=== PATIENT | female | born 1965 | race Caucasian/White ===

== ENCOUNTER → 2017-06-08 | Emergency (ER) | payer OTHER ==
[~2017-06-08] VITALS: Ht 160 cm; Wt 71.7 kg
[~2017-06-08] MED LIST: COZAAR50 MG; DICLOFENAC SODI50 MG PO; MEDROLPACK PO; NORFLEX100MG PO; SYNTHROID175 MCG
== END | disposition home or self-care (01) ==
LOC: ER 09:16
DX: M54.5 Low back pain (principal)